=== PATIENT | female | born 1955 | race African-American/Black ===

== ENCOUNTER 2019-05-18 13:14 | Emergency (ER) | payer SELFPAY ==
[~2019-05-18] VITALS: Ht 165.1 cm; Wt 86.0 kg
[2019-05-18 13:16] VITALS: BP 129/80
== END 2019-05-18 16:24 | disposition left against medical advice (07) ==
LOC: ER 13:14
DX: R10.9 Unspecified abdominal pain (principal); Z53.21 Procedure and treatment not carried out due to patient leaving prior to being seen by health care provider